=== PATIENT | female | born 1985 | race Caucasian/White ===

== ENCOUNTER 2023-04-29 16:35 | Emergency (ER) | payer OTHER, SELFPAY ==
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
[2023-04-29 16:53] VITALS: BP 133/96; PULSE 70; RESP 16; TEMP 36.6; O2SAT 100
[2023-04-29 16:54] VITALS: BP 133/96; PULSE 70; RESP 16; TEMP 36.6; O2SAT 100
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
== END 2023-04-29 17:36 | disposition home or self-care (01) ==
PROVIDERS: Emergency Provider Nurse Practitioner
DX: S29.012A Strain of muscle and tendon of back wall of thorax, initial encounter (principal); S16.1XXA Strain of muscle, fascia and tendon at neck level, initial encounter; S20.211A Contusion of right front wall of thorax, initial encounter; V49.40XA Driver injured in collision with unspecified motor vehicles in traffic accident, initial encounter
CPT/HCPCS: 71101; 99213; G0463

== ENCOUNTER 2024-03-07 17:29 | Emergency (ER) | payer OTHER, SELFPAY ==
[2024-03-07 17:38] VITALS: BP 132/86; PULSE 70; RESP 16; TEMP 36.2; O2SAT 16
--- NOTE | 2024-03-07 18:00 | ED.DENTAL ---
HPI - Dental/Oral General Chief complaint: Dental/Oral Stated complaint: tooth pain Time Seen by Provider: 03/07/24 18:00 Source: patient Mode of arrival: ambulatory Limitations: no limitations History of Present Illness HPI Narrative: 38 yo F presents with c/o R lower dental pain for 1 day. Does not have a dentist but states she has dental insurance and will fine one. AFebrie. All systems reviewed and negative except as noted above. Related Data Allergies Allergy/AdvReac Type Severity Reaction Status Date / Time No Known Allergies Allergy Verified 04/29/23 16:53 Review of Systems Review of Systems: CONSTITUTIONAL: Denies fever, chills, or sweats. EYES: Denies visual changes, redness, or discharge. ENT: Denies rhinorrhea, congestion, sore throat, or otalgia. reports R lower dental pain. CARDIOVASCULAR: Denies chest pain, palpitations, or edema. RESPIRATORY: Denies cough or dyspnea. GASTROINTESTINAL: Denies abdominal pain, nausea, vomiting, or diarrhea. GENITOURINARY: Denies dysuria or hematuria. SKIN: Denies rash or itching. MUSCULOSKELETAL: Denies back pain, joint pain, or myalgia. NEUROLOGIC: Denies headache, numbness, or weakness. PSYCHIATRIC: Denies anxiety or depression. All other systems reviewed are negative, except as documented in HPI. PMFSH Comments At time of signature, agree with nursing past medical, surgical, social and family history. There is no relevant family history pertinent to the presenting complaint. Exam Narrative: GENERAL: This is a well-nourished, well-developed patient, in no apparent distress. HEAD: normocephalic, atraumatic. EYES: PERRL. Sclera clear/white. Vision is grossly intact. EARS: External ears normal NOSE: External nose normal MOUTH: dental decay to multiple teeth, gums red and inflamed. no significant swelling or fluctuance concerning for abscess. NECK: Neck supple, non-tender without lymphadenopathy, masses or thyromegaly. CARDIOVASCULAR: Regular rate and rhythm without murmurs, gallops, or rubs. RESPIRATORY: Clear to auscultation. Breath sounds equal bilaterally. No wheezes, rales, or rhonchi. SKIN: warm, Dry, intact with no suspicious lesions or rash, good texture and turgor. NEURO: awake, alert, and oriented to person, place and time. There were no obvious focal neurologic abnormalities. EXTREMITIES: No joint tenderness, effusion, or edema noted. Course Course Level of Care: Express Care Visit Vital Signs Vital signs: Vital Signs Temperature 36.2 C L 03/07/24 17:38 Pulse Rate 70 03/07/24 17:38 Respiratory Rate 16 03/07/24 17:38 Blood Pressure 132/86 03/07/24 17:38 Pulse Oximetry 16 L 03/07/24 17:38 Oxygen Delivery Room Air 03/07/24 17:38 Temperature 36.2 C L 03/07/24 17:38 Pulse Rate 70 03/07/24 17:38 Respiratory Rate 16 03/07/24 17:38 Blood Pressure 132/86 03/07/24 17:38 Pulse Oximetry 16 L 03/07/24 17:38 Oxygen Delivery Room Air 03/07/24 17:38 Reviewed MDM - Dental/Oral MDM Narrative Medical decision making narrative: Patient is aware of diagnosis, understands and agrees to treatment plan. Anticipatory guidance given. Patient agrees to follow-up as directed and is aware of reasons to seek care at the emergency department. Portions of this record may have been created with voice recognition software patient well-appearing, nontoxic. Instructed to follow-up with dentist. Differential Diagnosis Differential diagnosis: Likely gingival abscess, dental caries, toothache, dental abscess and fracture of tooth Discharge Plan Discharge Clinical Impression: Toothache Patient Disposition: Home, Self-Care Condition: Stable Instructions: Antibiotic Form Additional Instructions: Take antibiotic as prescribed until gone. Take Tylenol or ibuprofen every 6-8 hours as needed for pain. Follow-up with dentist at next available appointment. Prescriptions: New clindamycin HCl 300 mg capsule 300 mg PO Q6H 10 Days Qty: 40 0RF Follow-up/Referrals: PHYSICIAN,ELECTRICAL ELECTRONICS ENGINEER [Primary Care Provider] - Time of Disposition: 18:03
== END 2024-03-07 18:07 | disposition home or self-care (01) ==
PROVIDERS: Emergency Provider Nurse Practitioner Family
DX: K08.89 Other specified disorders of teeth and supporting structures (principal)
CPT/HCPCS: 99213; G0463